=== PATIENT | female | born 1990 ===

== ENCOUNTER 2019-07-11 01:56 | Inpatient (IN) | payer OTHER ==
[2019-07-11] MEDS ORDERED: Benzocaine/Menthol 20%-0.5% Spray 78 GM Cannister TOP PRN (02:04)
[2019-07-11] MEDS ORDERED: oxyCODONE 5 MG Tab PO PRN (02:04)
[2019-07-11] MEDS ORDERED: Witch Hazel Medicated Pads 40/Jar TOP PRN (02:04)
[2019-07-11] MEDS ORDERED: Bisacodyl 10 MG Supp RECTAL PRN (02:04)
[2019-07-11] MEDS ORDERED: Acetaminophen 500 MG Tab PO PRN ×2 (02:04)
[2019-07-11] MEDS ORDERED: Oxytocin 10 Units/1 ML SDV IM PRN (02:04)
[2019-07-11] MEDS ORDERED: Ibuprofen 400 MG Tab PO PRN (02:04)
[2019-07-11] MEDS ORDERED: Lanolin 100% Cream 7 GM Tube TOP PRN (02:04)
--- NOTE | 2019-07-11 02:17 | PCM.DEL ---
L & D Note - General Info Date of Service: 07/11/19 Mother's Due Date: 07/09/19 - Delivery Note Labor: Spontaneous Delivery Outcome: Livebirth Infant Delivery Method: Spontaneous Vaginal Delivery-Single Delivery Mode: Spontaneous Presentation: Vertex Episiotomy Type: None Laceration: None Estimated Blood Loss: 300 Delivery Comments (Free Text/Narrative):: Pt comes via [facility] to [facility], baby is in car seat, and Travel Sales Consultant at side when i arrive. I escort couple to LDR 1. Assisted to bed and remove her pants and underwear. Noted was umbilical cord noted clamped and cut. Placenta removed with gentle traction. Placenta delivered grossly intact. 3VC. Inspection noted small ML lac, no repair, hemostasis obtained. EBL at hospital 300cc. Stable - General Info Date of Service: 07/11/19 Functional Status: Reports: Pain Controlled, Ambulating - Review of Systems General: Reports: No Symptoms HEENT: Reports: No Symptoms Pulmonary: Reports: No Symptoms Cardiovascular: Reports: No Symptoms Gastrointestinal: Reports: No Symptoms Genitourinary: Reports: No Symptoms Musculoskeletal: Reports: No Symptoms Skin: Reports: No Symptoms Neurological: Reports: No Symptoms Psychiatric: Reports: No Symptoms - Patient Data Weight - Most Recent: 71.668 kg Med Orders - Current: Current Medications Acetaminophen (Tylenol Extra Strength) 500 mg PO Q4H PRN PRN Reason: Pain Acetaminophen (Tylenol Extra Strength) 1,000 mg PO Q4H PRN PRN Reason: Pain Benzocaine/Menthol (Dermoplast Pain Relief 20%-0.5% [place]) 78 gm TOP ASDIRECTED PRN PRN Reason: Perineal Comfort Measure Bisacodyl (Dulcolax) 10 mg RECTAL ONETIME PRN PRN Reason: Constipation Docusate Sodium (Colace) 100 mg PO BID PRN PRN Reason: Constipation Emollient Ointment (Lansinoh Hpa) 0 gm TOP ASDIRECTED PRN PRN Reason: Sore Nipples Ibuprofen (Motrin) 400 mg PO Q4H PRN PRN Reason: Pain Ibuprofen (Motrin) 800 mg PO Q6H PRN PRN Reason: Pain Oxycodone HCl (Oxycodone) 5 mg PO Q2H PRN PRN Reason: Pain Oxytocin (Pitocin) 10 unit IM ASDIRECTED PRN PRN Reason: Bleeding Witch Ashish (Tucks) 1 pad TOP ASDIRECTED PRN PRN Reason: comfort care - Exam General: Alert, Oriented, Cooperative, Sedated Lungs: Clear to Auscultation, Normal Respiratory Effort. No: Decreased Breath Sounds Cardiovascular: Regular Rate, Regular Rhythm, No Murmurs. No: Irregular Rhythm GI/Abdominal Exam: Soft, Non-Tender (Female) Exam: Normal External Exam, Normal Bimanual Exam, Vaginal Bleeding. No: Vaginal Lesions, Vaginal Tears Back Exam: Normal Inspection, Full Range of Motion Extremities: Normal Inspection, Normal Range of Motion, Non-Tender, No Pedal Edema Skin: Warm, Dry, Intact Neurological: No New Focal Deficit, Normal Gait, Normal Speech, Normal Tone, Strength Equal Bilateral, Sensation Intact Psy/Mental Status: Alert, Normal Affect, Normal Mood - Problem List & Annotations (1) (normal spontaneous vaginal delivery) SNOMED Code(s): 67919911, 006327143 Code(s): O80 - ENCOUNTER FOR FULL-TERM UNCOMPLICATED DELIVERY Status: Acute Priority: High Current Visit: Yes - Problem List Review Problem List Initiated/Reviewed/Updated: Yes - My Orders Last 24 Hours: My Active Orders 07/11/19 02:04 CBC W/O DIFF,HEMOGRAM [HEME] Routine Acetaminophen [Tylenol Extra Strength] 1,000 mg PO Q4H PRN Acetaminophen [Tylenol Extra Strength] 500 mg PO Q4H PRN Benzocaine/Menthol [Dermoplast Pain Relief 20%-0.5% [place]] 78 gm TOP ASDIRECTED PRN Docusate Sodium [Colace] 100 mg PO BID PRN Ibuprofen [Motrin] 400 mg PO Q4H PRN Ibuprofen [Motrin] 800 mg PO Q6H PRN Lanolin [Lansinoh HPA] See Dose Instructions TOP ASDIRECTED PRN Oxytocin [Pitocin] 10 unit IM ASDIRECTED PRN bisacodyL [Dulcolax] 10 mg RECTAL ONETIME PRN oxyCODONE 5 mg PO Q2H PRN witch Ashish [Tucks] 1 pad TOP ASDIRECTED PRN Resuscitation Status Routine 07/11/19 02:05 Patient Status [ADT] Routine May Shower [RC] ASDIRECTED Up ad Yulia [RC] ASDIRECTED Vital Signs [RC] PER UNIT ROUTINE Assess Lochia [WOMSER] Per Unit Routine Assess Uterine Involution [WOMSER] Per Unit Routine Peripheral IV Discontinue [OM.PC] Routine 07/11/19 02:07 RPR (SYPHILIS SERO) W/ RFLX [REF] Routine TYPE AND SCREEN [BBK] Routine 07/11/19 Breakfast Regular Diet [DIET] - Plan Plan:: Delivery A: viable female at home with APGARS unkwn, Wt: pending bonding. Intact, EBL 300cc. Stable P: Routine pp plan of care
--- NOTE | 2019-07-11 02:23 | PCM.LDHP ---
L&D History of Present Illness - General Date of Service: 07/11/19 Admit Problem/Dx: Patient Status Order with Admit Dx/Problem 07/11/19 02:05 Patient Status [ADT] Routine Admission Diagnosis/Problem Admission Diagnosis/Problem Planned 07/11/19 02:19 28yo EDC 07/09/2019 40 2/7wks comes with baby in the car seat, and agri business agent at side. States placenta no delivered. O neg, RI, GBS neg. Delivered. - Related Data Allergies/Adverse Reactions: Allergies Allergy/AdvReac Type Severity Reaction Status Date / Time No Known Allergies Allergy Verified 07/11/19 02:03 Home Medications: Home Meds . [No Known Home Meds] 07/11/19 [History] H&P Review of Systems - Review of Systems: Review Of Systems: See Below General: Reports: No Symptoms HEENT: Reports: No Symptoms Pulmonary: Reports: No Symptoms Cardiovascular: Reports: No Symptoms Gastrointestinal: Reports: No Symptoms Genitourinary: Reports: No Symptoms Musculoskeletal: Reports: No Symptoms Skin: Reports: No Symptoms Psychiatric: Reports: No Symptoms Neurological: Reports: No Symptoms Hematologic/Lymphatic: Reports: No Symptoms Immunologic: Reports: No Symptoms L&D Exam - Exam Exam: See Below - Vital Signs Weight: 71.668 kg - OB Specific Presentation: Vertex - Exam HEENT: Hearing Intact Lungs: Clear to Auscultation, Normal Respiratory Effort. No: Decreased Breath Sounds Cardiovascular: Regular Rate, Regular Rhythm, Normal S1, Normal S2. No: Irregular Rhythm GI/Abdominal Exam: Soft, Non-Tender Genitourinary: Normal external exam, Normal bimanual exam, Vaginal bleeding. No : Vaginal lesions, Vaginal tears Back Exam: Normal Inspection, Full Range of Motion Extremities: Normal Inspection, Normal Range of Motion, Non-Tender, No Pedal Edema Skin: Warm, Dry, Intact Neurological: Cranial Nerves Intact, Reflexes Equal Bilateral, Strength Equal Bilateral, Normal Gait, Normal Speech, Normal Tone, Sensation Intact Psychiatric: Alert, Normal Affect, Normal Mood - Problem List (1) (normal spontaneous vaginal delivery) SNOMED Code(s): 73131236, [id number] ICD Code: O80 - ENCOUNTER FOR FULL-TERM UNCOMPLICATED DELIVERY Status: Acute Priority: High Current Visit: Yes Problem List Initiated/Reviewed/Updated: Yes Orders Last 24hrs: Active Orders 24 hr Category Date Time Status Patient Status [ADT] Routine ADT 07/11/19 02:05 Active May Shower [RC] ASDIRECTED Care 07/11/19 02:05 Active Up ad Yulia [RC] ASDIRECTED Care 07/11/19 02:05 Active Vital Signs [RC] PER UNIT ROUTINE Care 07/11/19 02:05 Active Regular Diet [DIET] Diet 07/11/19 Breakfast Active CBC W/O DIFF,HEMOGRAM [HEME] Routine Lab 07/11/19 02:04 Ordered RPR (SYPHILIS SERO) W/ RFLX [REF] Routine Lab 07/11/19 02:07 Ordered TYPE AND SCREEN [BBK] Routine Lab 07/11/19 02:07 Ordered Acetaminophen [Tylenol Extra Strength] Med 07/11/19 02:04 Ordered 1,000 mg PO Q4H PRN Acetaminophen [Tylenol Extra Strength] Med 07/11/19 02:04 Ordered 500 mg PO Q4H PRN Benzocaine/Menthol [Dermoplast Pain Relief 20%-0.5% Med 07/11/19 02:04 Ordered [place]] 78 gm TOP ASDIRECTED PRN Docusate Sodium [Colace] Med 07/11/19 02:04 Ordered 100 mg PO BID PRN Ibuprofen [Motrin] Med 07/11/19 02:04 Ordered 400 mg PO Q4H PRN Ibuprofen [Motrin] Med 07/11/19 02:04 Ordered 800 mg PO Q6H PRN Lanolin [Lansinoh HPA] Med 07/11/19 02:04 Ordered See Dose Instructions TOP ASDIRECTED PRN Oxytocin [Pitocin] Med 07/11/19 02:04 Ordered 10 unit IM ASDIRECTED PRN bisacodyL [Dulcolax] Med 07/11/19 02:04 Ordered 10 mg RECTAL ONETIME PRN oxyCODONE Med 07/11/19 02:04 Ordered 5 mg PO Q2H PRN witch Ashish [Tucks] Med 07/11/19 02:04 Ordered 1 pad TOP ASDIRECTED PRN Assess Lochia [WOMSER] Per Unit Routine Oth 07/11/19 02:05 Ordered Assess Uterine Involution [WOMSER] Per Unit Routine Oth 07/11/19 02:05 Ordered Peripheral IV Discontinue [OM.PC] Routine Oth 07/11/19 02:05 Ordered Resuscitation Status Routine Resus Stat 07/11/19 02:04 Ordered Medication Orders Acetaminophen (Tylenol Extra Strength) 500 mg PO Q4H PRN PRN Reason: Pain Acetaminophen (Tylenol Extra Strength) 1,000 mg PO Q4H PRN PRN Reason: Pain Benzocaine/Menthol (Dermoplast Pain Relief 20%-0.5% [place]) 78 gm TOP ASDIRECTED PRN PRN Reason: Perineal Comfort Measure Bisacodyl (Dulcolax) 10 mg RECTAL ONETIME PRN PRN Reason: Constipation Docusate Sodium (Colace) 100 mg PO BID PRN PRN Reason: Constipation Emollient Ointment (Lansinoh Hpa) 0 gm TOP ASDIRECTED PRN PRN Reason: Sore Nipples Ibuprofen (Motrin) 400 mg PO Q4H PRN PRN Reason: Pain Ibuprofen (Motrin) 800 mg PO Q6H PRN PRN Reason: Pain Oxycodone HCl (Oxycodone) 5 mg PO Q2H PRN PRN Reason: Pain Oxytocin (Pitocin) 10 unit IM ASDIRECTED PRN PRN Reason: Bleeding Witch Ashish (Tucks) 1 pad TOP ASDIRECTED PRN PRN Reason: comfort care Assessment/Plan Comment:: Admit A: 28yo EDC 07/09/2019 40 2/7wks comes with baby in the car seat, and agri business agent at side. States placenta no delivered. O neg, RI, GBS neg. Delivered. P: Delivered placenta, watch for bleeding/PPH Delivery A: viable female at home with APGARS unkwn, Wt: pending bonding. Intact, EBL 300cc. Stable P: Routine pp plan of care
[2019-07-11] MEDS: Ibuprofen 800 MG Tab PO PRN ×3 (05:58→20:10)
[2019-07-11] MEDS: Docusate Sodium 100 MG Cap PO PRN (20:11)
[2019-07-12] MEDS: Ibuprofen 800 MG Tab PO PRN (06:15)
--- NOTE | 2019-07-12 07:28 | PCM.DCSUM1 ---
Discharge Summary - Hospital Course Free Text/Narrative:: Discharge home with . Follow up in 6 weeks. Diagnosis: Stroke: No Modified Otoe Scale: No Symptoms at All Modified Otoe Scale Score: 0 - Discharge Data Discharge Date: 07/12/19 Discharge Disposition: Home, Self-Care 01 Condition: Good - Referral to Home Health Primary Care Physician: PCP None - Discharge Diagnosis/Problem(s) (1) (normal spontaneous vaginal delivery) SNOMED Code(s): 72046334, [id number] ICD Code: O80 - ENCOUNTER FOR FULL-TERM UNCOMPLICATED DELIVERY Status: Acute Priority: High Current Visit: Yes - Patient Instructions Diet: Usual Diet as Tolerated Activity: As Tolerated, No Strenuous Activities, Rest and Relax Today Driving: May Drive Today Showering/Bathing: May Shower Notify Provider of: Fever, Increased Pain, Swelling and Redness, Nausea and/or Vomiting - Discharge Plan *PRESCRIPTION DRUG MONITORING PROGRAM REVIEWED*: Not Applicable *COPY OF PRESCRIPTION DRUG MONITORING REPORT IN PATIENT PAUL: Not Applicable Home Medications: Home Meds . [No Known Home Meds] 07/11/19 [History] Oxygen Therapy Mode: Room Air Referrals: [facility] [Outside] Kelly Nava CNM [Mid-] - 08/22/19 1:00 pm - Discharge Summary/Plan Comment DC Time >30 min.: Yes - General Info Date of Service: 07/12/19 Admission Dx/Problem (Free Text: Patient Status Order with Admit Dx/Problem 07/11/19 02:05 Patient Status [ADT] Routine Admission Diagnosis/Problem Admission Diagnosis/Problem Planned 07/11/19 02:19 28yo EDC 07/09/2019 40 2/7wks comes with baby in the car seat, and economic adviser at side. States placenta no delivered. O neg, RI, GBS neg. Delivered. Functional Status: Reports: Pain Controlled, Tolerating Diet, Ambulating, Urinating - Review of Systems General: Reports: No Symptoms HEENT: Reports: No Symptoms Pulmonary: Reports: No Symptoms Cardiovascular: Reports: No Symptoms Gastrointestinal: Reports: No Symptoms Genitourinary: Reports: No Symptoms Musculoskeletal: Reports: No Symptoms Skin: Reports: No Symptoms Neurological: Reports: No Symptoms Psychiatric: Reports: No Symptoms - Patient Data Vitals - Most Recent: Last Vital Signs Temp 36.9 C 07/12/19 04:24 Pulse 84 07/12/19 04:24 Resp 16 07/12/19 04:24 BP 120/70 07/12/19 04:24 Pulse Ox 99 07/12/19 04:24 Weight - Most Recent: 71.668 kg I&O - Last 24 hours: Intake & Output 07/11/19 07/12/19 07/12/19 22:59 06:59 14:59 Intake Total 2 Balance 2 Lab Results - Last 24 hrs: Laboratory Results - last 24 hr 07/11/19 Range/Units 04:00 Screen NEGATIVE (NEGATIVE) RhIG Candidate? YES Rhogam Indicated YES, BABY RH POS H Med Orders - Current: Current Medications Acetaminophen (Tylenol Extra Strength) 500 mg PO Q4H PRN PRN Reason: Pain Acetaminophen (Tylenol Extra Strength) 1,000 mg PO Q4H PRN PRN Reason: Pain Benzocaine/Menthol (Dermoplast Pain Relief 20%-0.5% [place]) 78 gm TOP ASDIRECTED PRN PRN Reason: Perineal Comfort Measure Bisacodyl (Dulcolax) 10 mg RECTAL ONETIME PRN PRN Reason: Constipation Docusate Sodium (Colace) 100 mg PO BID PRN PRN Reason: Constipation Last Admin: 07/11/19 20:11 Dose: 100 mg Emollient Ointment (Lansinoh Hpa) 0 gm TOP ASDIRECTED PRN PRN Reason: Sore Nipples Last Admin: 07/11/19 12:37 Dose: 1 tube Ibuprofen (Motrin) 400 mg PO Q4H PRN PRN Reason: Pain Ibuprofen (Motrin) 800 mg PO Q6H PRN PRN Reason: Pain Last Admin: 07/12/19 06:15 Dose: 800 mg Oxycodone HCl (Oxycodone) 5 mg PO Q2H PRN PRN Reason: Pain Oxytocin (Pitocin) 10 unit IM ASDIRECTED PRN PRN Reason: Bleeding Last Admin: 07/11/19 02:00 Dose: 10 unit Witch Katiana (Tucks) 1 pad TOP ASDIRECTED PRN PRN Reason: comfort care Last Admin: 07/11/19 04:10 Dose: 1 pad - Exam General: Reports: Alert, Oriented, Cooperative, No Acute Distress Lungs: Reports: Normal Respiratory Effort (Female) Exam: Deferred, Vaginal Bleeding Rectal (Female) Exam: Deferred Back Exam: Reports: Normal Inspection, Full Range of Motion Extremities: Normal Range of Motion Skin: Reports: Warm, Dry, Intact Wound/Incisions: Reports: Healing Well Neurological: Reports: No New Focal Deficit, Normal Speech, Normal Tone, Strength Equal Bilateral Psy/Mental Status: Reports: Alert, Normal Affect, Normal Mood
[2019-07-12] MEDS: Docusate Sodium 100 MG Cap PO PRN (11:08)
== END 2019-07-12 11:55 | disposition home or self-care (01) | DRG 807 ==
LOC: MW.OBCHECK 01:56 → MW.OB 01:58 → OBSVTOIN 01:59 → MW.OB 01:59
PROVIDERS: ADMIT Obstetrics & Gynecology; ATTEND Obstetrics & Gynecology
PROC: 10E0XZZ Delivery of Products of Conception, External Approach (ICD-10-PCS; principal; 2019-07-11)
PROC: 3E0334Z Introduction of Serum, Toxoid and Vaccine into Peripheral Vein, Percutaneous Approach (ICD-10-PCS; 2019-07-11)
DX: O48.0 Post-term pregnancy (principal); Z37.0 Single live birth; Z3A.40 40 weeks gestation of pregnancy; O26.893 Other specified pregnancy related conditions, third trimester; Z67.41 Type O blood, Rh negative
CPT/HCPCS: 36415; 36430; 85027; 85460; 86592; 86593; 86850; 86900; 86901; A9270-GY; J2590; J2792